=== PATIENT | female | born 1995 | race Caucasian/White ===

== ENCOUNTER 2020-11-25 15:30 | Outpatient (CLI) | payer OTHER ==
[~2020-11-25 15:30] MED LIST: LEVOTHYROXINE50 MCG PO; NAPROSYN500 MG PO; NORCO 5-325 TA1 EACH PO; NOVOLOG INSULIN PUMP; PERCOCET 7.5-31 EACH PO; STOOL SOFTENER250 MG PO; ZOFRAN4 MG PO
== END 2020-11-25 18:43 | disposition home or self-care (01) ==
LOC: GENOP 15:30
DX: O24.013 Pre-existing type 1 diabetes mellitus, in pregnancy, third trimester (principal); E10.9 Type 1 diabetes mellitus without complications; O99.891 Other specified diseases and conditions complicating pregnancy; R10.2 Pelvic and perineal pain; Z3A.30 30 weeks gestation of pregnancy
CPT/HCPCS: 81001; 82731; G0463